=== PATIENT | male | born 1935 | race Caucasian/White ===

== ENCOUNTER 2021-01-25 12:41 | Inpatient (IN) ==
[2021-01-25] MEDS ORDERED: SODIUM CHLORIDE 0.9% 1,000 ML IV STA (15:41)
[2021-01-25] MEDS ORDERED: ONDANSETRON 4 MG/2 ML VIAL IV STA (15:41)
[2021-01-25 16:24] LABS: Basophils % 0.2 % (0.0-0.8); Eosinophils # 0.1 10*3/uL (0.0-0.87); Eosinophils % 0.8 % (0.00-10.9); Hematocrit 41.8 VOL% (42.0-52.0); Hemoglobin 13.1 GM/DL (14.0-18.0); Immature Granulocytes % 0.3 %; Immature Granulocytes Absolute 0.02 #; Lymphocytes # 0.7 10*3/uL (1.4-4.0); Lymphocytes % 11.5 % (21.2-54.2); Mean Corpuscular HGB Conc 31.3 GM/DL (32-36); Mean Corpuscular Volume 96.5 FL (87-102); Mean Platelet Volume 10.6 FL (9.6-12.0); Monocytes % 8.4 % (1.7-12.7); Neutrophils % 78.8 % (38.7-73.9); Platelet Count 110 T/CUMM (130-400); Red Blood Count 4.33 MC/CUMM (3.8-5.5); Red Cell Distribution Width 14.3 % (9.3-17.3); White Blood Count 6.3 T/CUMM (4-12)
[2021-01-25 16:39] LABS: Albumin 3.1 G/DL (3.4-5.0); Bilirubin,Total 1.8 MG/DL (0.2-1.0); Calcium 8.9 MG/DL (8.5-10.1); Osmolality,Calculated 286.7 MOS/KG (273-304); Potassium 4.8 MMOL/L (3.5-5.1); Total Protein 6.8 G/DL (6.4-8.2)
[2021-01-25 16:44] LABS: INR 1.7; PT Patient Result 18.7 SECS (10.5-12.0); Partial Thromboplastin Time 32.7 SECS (23.9-33.8)
[2021-01-25 16:49] LABS: Thyroid Stimulating Hormone 5.03 uIU/ml (0.358-3.74)
[2021-01-25 18:27] LABS: Bilirubin,Urine Negative (Negative); Blood, Urine Negative (Negative); Glucose,Urine (UA) Negative (Negative); Ketones,Urine Negative (Negative); Nitrite,Urine Negative (Negative); Protein,Urine 30 MG/DL; RBC,Urine 1 /HPF (0-4); Squamous Epithelial Cell,Urine Occasional /HPF (0-10); Urine Appearance CLEAR (Clear); Urine Color Yellow (Yellow); Urine Specific Gravity 1.028 (1.001-1.035); Urine Urobilinogen < 2.0 EU/DL (0.2-1.0)
[2021-01-25] MEDS ORDERED: DEXTROSE 50% 25 GM/50 ML VIAL IV PRN ×2 (19:26)
[2021-01-25] MEDS ORDERED: ONDANSETRON 4 MG/2 ML VIAL IV PRN (19:26)
[2021-01-25] MEDS ORDERED: GLUCAGON 1 MG VIAL IM PRN ×2 (19:26)
[2021-01-25] MEDS ORDERED: WARFARIN 2.5 MG TABLET PO ONE (19:51)
[2021-01-25] MEDS: INSULIN REGULAR 100 UNIT/ML SUBCUT SCH (23:22)
[2021-01-26 05:23] LABS: Basophils % 0.3 % (0.0-0.8); Eosinophils # 0.2 10*3/uL (0.0-0.87); Eosinophils % 2.6 % (0.00-10.9); Hematocrit 39.4 VOL% (42.0-52.0); Hemoglobin 12.5 GM/DL (14.0-18.0); Immature Granulocytes % 0.3 %; Immature Granulocytes Absolute 0.02 #; Lymphocytes # 0.9 10*3/uL (1.4-4.0); Lymphocytes % 14.5 % (21.2-54.2); Mean Corpuscular HGB Conc 31.7 GM/DL (32-36); Mean Corpuscular Volume 96.8 FL (87-102); Monocytes % 11.8 % (1.7-12.7); Neutrophils % 70.5 % (38.7-73.9); Platelet Count 103 T/CUMM (130-400); Red Blood Count 4.07 MC/CUMM (3.8-5.5); Red Cell Distribution Width 14.4 % (9.3-17.3); White Blood Count 6.1 T/CUMM (4-12)
[2021-01-26 05:24] LABS: INR 1.9; PT Patient Result 20.2 SECS (10.5-12.0)
[2021-01-26 05:56] LABS: Albumin 2.6 G/DL (3.4-5.0); Bilirubin,Total 1.3 MG/DL (0.2-1.0); Calcium 8.9 MG/DL (8.5-10.1); Osmolality,Calculated 285.5 MOS/KG (273-304); Potassium 4.6 MMOL/L (3.5-5.1); Total Protein 6.2 G/DL (6.4-8.2)
[2021-01-26 06:17] LABS: Microcytosis Slight; Ovalocytes Slight; Platelet Estimate Decreased
[2021-01-26 08:14] LABS: Free T4 (Free Thyroxine) 0.75 NG/DL (0.76-1.46)
[2021-01-26] MEDS: INSULIN REGULAR 100 UNIT/ML SUBCUT SCH ×4 (08:18→21:18)
[2021-01-26] MEDS ORDERED: SIMVASTATIN 10 MG TABLET PO SCH (09:00)
[2021-01-26] MEDS: ASPIRIN CHEW 81 MG TABLET PO SCH (09:35)
[2021-01-26] MEDS: TAMSULOSIN 0.4 MG CAPSULE PO SCH (09:36)
[2021-01-26] MEDS: PANTOPRAZOLE 40 MG TABLET PO SCH (09:36)
[2021-01-26] MEDS: AMIODARONE 200 MG TABLET PO SCH (09:36)
[2021-01-26] MEDS: FLUTICASONE 50 MCG NASAL SPRAY 16 GM BOTTLE BOTH NARES SCH (09:37)
[2021-01-26] MEDS: SODIUM CHLORIDE 0.9% 1,000 ML IV SCH (12:18)
[2021-01-26] MEDS: DIGOXIN 0.125 MG TABLET PO SCH (12:22)
[2021-01-26] MEDS ORDERED: INSULIN NPH/REGULAR 70/30 100 UNIT/ML SUBCUT SCH (16:30)
[2021-01-26] MEDS: WARFARIN 2 MG TABLET PO SCH (17:18)
[2021-01-26] MEDS: INSULIN NPH/REGULAR 70/30 100 UNIT/ML SUBCUT SCH (17:19)
[2021-01-26] MEDS: SERTRALINE 25 MG TABLET PO SCH (21:18)
[2021-01-26] MEDS: carvediloL 12.5 MG TABLET PO SCH (21:18)
[2021-01-27] MEDS: SODIUM CHLORIDE 0.9% 1,000 ML IV SCH ×2 (00:23→13:43)
[2021-01-27] MEDS: LEVOTHYROXINE 75 MCG TABLET PO SCH ×2 (06:08→09:29)
[2021-01-27 06:22] LABS: INR 2.3; PT Patient Result 23.9 SECS (10.5-12.0)
[2021-01-27] MEDS ORDERED: LEVOTHYROXINE 50 MCG TABLET PO SCH (07:00)
[2021-01-27 08:08] LABS: Basophils % 0.4 % (0.0-0.8); Eosinophils # 0.2 10*3/uL (0.0-0.87); Eosinophils % 3.4 % (0.00-10.9); Hematocrit 38.3 VOL% (42.0-52.0); Hemoglobin 12.1 GM/DL (14.0-18.0); Immature Granulocytes % 0.2 %; Immature Granulocytes Absolute 0.01 #; Lymphocytes % 19.8 % (21.2-54.2); Mean Corpuscular HGB Conc 31.6 GM/DL (32-36); Mean Corpuscular Volume 98.2 FL (87-102); Mean Platelet Volume 11.3 FL (9.6-12.0); Monocytes % 11.3 % (1.7-12.7); Neutrophils % 64.9 % (38.7-73.9); Platelet Count 96 T/CUMM (130-400); Red Cell Distribution Width 14.8 % (9.3-17.3); White Blood Count 5.1 T/CUMM (4-12)
[2021-01-27 08:13] LABS: Calcium 8.6 MG/DL (8.5-10.1); Osmolality,Calculated 278.7 MOS/KG (273-304); Potassium 4.5 MMOL/L (3.5-5.1)
[2021-01-27 08:27] LABS: Platelet Estimate Decreased
[2021-01-27 08:28] LABS: Anisocytosis 1+; Macrocytosis 1+
[2021-01-27] MEDS: TAMSULOSIN 0.4 MG CAPSULE PO SCH (09:29)
[2021-01-27] MEDS: INSULIN NPH/REGULAR 70/30 100 UNIT/ML SUBCUT SCH ×2 (09:29→17:07)
[2021-01-27] MEDS: SERTRALINE 25 MG TABLET PO SCH (09:29)
[2021-01-27] MEDS: FLUTICASONE 50 MCG NASAL SPRAY 16 GM BOTTLE BOTH NARES SCH (09:29)
[2021-01-27] MEDS: INSULIN REGULAR 100 UNIT/ML SUBCUT SCH ×4 (09:29→20:59)
[2021-01-27] MEDS: PANTOPRAZOLE 40 MG TABLET PO SCH (09:29)
[2021-01-27] MEDS: ASPIRIN CHEW 81 MG TABLET PO SCH (09:29)
[2021-01-27] MEDS ORDERED: cefTRIAXone 1,000 MG in SODIUM CHLORIDE 0.9% 100 ML IV SCH (10:30)
[2021-01-27] MEDS: carvediloL 12.5 MG TABLET PO SCH (10:31)
[2021-01-27 10:54] LABS: Vitamin B12 457 PG/ML (211-911)
[2021-01-27] MEDS ORDERED: LACTULOSE 20 GM/30 ML UDCUP PO ONE ×2 (12:05→21:00)
[2021-01-27] MEDS: DIGOXIN 0.125 MG TABLET PO SCH (12:28)
[2021-01-27] MEDS: WARFARIN 3 MG TABLET PO SCH (17:07)
[2021-01-27] MEDS: carvediloL 3.125 MG TABLET PO SCH (20:59)
[2021-01-28] MEDS: LEVOTHYROXINE 75 MCG TABLET PO SCH (06:30)
[2021-01-28] MEDS: SODIUM CHLORIDE 0.9% 1,000 ML IV SCH (06:45)
[2021-01-28 06:51] LABS: Basophils % 0.2 % (0.0-0.8); Eosinophils # 0.1 10*3/uL (0.0-0.87); Eosinophils % 2.4 % (0.00-10.9); Hematocrit 40.7 VOL% (42.0-52.0); Hemoglobin 13.1 GM/DL (14.0-18.0); Immature Granulocytes % 0.3 %; Immature Granulocytes Absolute 0.02 #; Lymphocytes # 0.9 10*3/uL (1.4-4.0); Lymphocytes % 15.3 % (21.2-54.2); Mean Corpuscular HGB Conc 32.2 GM/DL (32-36); Mean Corpuscular Volume 95.8 FL (87-102); Mean Platelet Volume 10.6 FL (9.6-12.0); Neutrophils % 70.8 % (38.7-73.9); Platelet Count 88 T/CUMM (130-400); Red Blood Count 4.25 MC/CUMM (3.8-5.5); Red Cell Distribution Width 14.6 % (9.3-17.3); White Blood Count 5.8 T/CUMM (4-12)
[2021-01-28 06:58] LABS: INR 2.3
[2021-01-28 06:59] LABS: PT Patient Result 24.4 SECS (10.5-12.0)
[2021-01-28 07:15] LABS: Calcium 8.5 MG/DL (8.5-10.1); Osmolality,Calculated 280.5 MOS/KG (273-304); Potassium 4.8 MMOL/L (3.5-5.1)
[2021-01-28 07:28] LABS: Anisocytosis 1+; Platelet Estimate Decreased
[2021-01-28 07:29] LABS: Barbiturates Screen,Urine Negative (Negative); Benzodiazepines Screen,Urine Negative (Negative); Cannabinoid Screen,Urine Negative (Negative); Opiate Screen,Urine Negative (Negative); Phencyclidine Screen,Urine Negative (Negative)
[2021-01-28 07:29] LABS: Burr Cells 1+; Macrocytosis Slight
[2021-01-28] MEDS: INSULIN REGULAR 100 UNIT/ML SUBCUT SCH ×4 (08:47→21:15)
[2021-01-28] MEDS: carvediloL 3.125 MG TABLET PO SCH ×2 (08:57→21:14)
[2021-01-28] MEDS: TAMSULOSIN 0.4 MG CAPSULE PO SCH (08:57)
[2021-01-28] MEDS: ASPIRIN CHEW 81 MG TABLET PO SCH (08:57)
[2021-01-28] MEDS: lisinopriL 2.5 MG TABLET PO SCH (08:57)
[2021-01-28] MEDS: PANTOPRAZOLE 40 MG TABLET PO SCH (08:57)
[2021-01-28] MEDS: FLUTICASONE 50 MCG NASAL SPRAY 16 GM BOTTLE BOTH NARES SCH (08:57)
[2021-01-28] MEDS: AMIODARONE 200 MG TABLET PO SCH (08:57)
[2021-01-28] MEDS: INSULIN NPH/REGULAR 70/30 100 UNIT/ML SUBCUT SCH ×2 (08:57→17:33)
[2021-01-28] MEDS ORDERED: LACTULOSE 20 GM/30 ML UDCUP PO ONE (09:51)
[2021-01-28] MEDS ORDERED: LACTULOSE 20 GM/30 ML UDCUP PO PRN (09:51)
[2021-01-28] MEDS: AMOXICILLIN/CLAV 875 MG TABLET PO SCH ×2 (11:20→21:11)
[2021-01-28] MEDS: DONEPEZIL 5 MG TABLET PO SCH (11:20)
[2021-01-28] MEDS: DIGOXIN 0.125 MG TABLET PO SCH (12:40)
[2021-01-28] MEDS: WARFARIN 3 MG TABLET PO SCH (17:34)
[2021-01-29 05:26] LABS: Basophils % 0.5 % (0.0-0.8); Eosinophils # 0.2 10*3/uL (0.0-0.87); Eosinophils % 3.6 % (0.00-10.9); Hematocrit 40.8 VOL% (42.0-52.0); Hemoglobin 12.8 GM/DL (14.0-18.0); Immature Granulocytes % 0.2 %; Immature Granulocytes Absolute 0.01 #; Lymphocytes # 0.9 10*3/uL (1.4-4.0); Lymphocytes % 14.9 % (21.2-54.2); Mean Corpuscular HGB Conc 31.4 GM/DL (32-36); Mean Corpuscular Volume 98.1 FL (87-102); Mean Platelet Volume 10.7 FL (9.6-12.0); Monocytes % 11.8 % (1.7-12.7); Red Blood Count 4.16 MC/CUMM (3.8-5.5); Red Cell Distribution Width 14.8 % (9.3-17.3); White Blood Count 5.8 T/CUMM (4-12)
[2021-01-29 05:27] LABS: Platelet Count 98 T/CUMM (130-400)
[2021-01-29 05:39] LABS: INR 2.9
[2021-01-29 05:40] LABS: PT Patient Result 30.1 SECS (10.5-12.0)
[2021-01-29 05:51] LABS: Calcium 9.2 MG/DL (8.5-10.1); Osmolality,Calculated 278.4 MOS/KG (273-304); Potassium 4.7 MMOL/L (3.5-5.1)
[2021-01-29] MEDS: LEVOTHYROXINE 75 MCG TABLET PO SCH (06:08)
[2021-01-29] MEDS: SODIUM CHLORIDE 0.9% 1,000 ML IV SCH (08:38)
[2021-01-29] MEDS: INSULIN REGULAR 100 UNIT/ML SUBCUT SCH ×4 (08:38→22:22)
[2021-01-29] MEDS: INSULIN NPH/REGULAR 70/30 100 UNIT/ML SUBCUT SCH ×2 (08:45→17:10)
[2021-01-29] MEDS: TAMSULOSIN 0.4 MG CAPSULE PO SCH (08:46)
[2021-01-29] MEDS: DONEPEZIL 5 MG TABLET PO SCH (08:46)
[2021-01-29] MEDS: lisinopriL 2.5 MG TABLET PO SCH (08:46)
[2021-01-29] MEDS: ASPIRIN CHEW 81 MG TABLET PO SCH (08:46)
[2021-01-29] MEDS: FLUTICASONE 50 MCG NASAL SPRAY 16 GM BOTTLE BOTH NARES SCH (08:46)
[2021-01-29] MEDS: PANTOPRAZOLE 40 MG TABLET PO SCH (08:46)
[2021-01-29] MEDS: carvediloL 3.125 MG TABLET PO SCH ×2 (08:46→20:45)
[2021-01-29] MEDS: AMOXICILLIN/CLAV 875 MG TABLET PO SCH ×2 (09:00→22:23)
[2021-01-29] MEDS: DIGOXIN 0.125 MG TABLET PO SCH (14:26)
[2021-01-29] MEDS: WARFARIN 2 MG TABLET PO SCH ×2 (17:09→17:20)
[2021-01-30 06:37] LABS: Basophils % 0.2 % (0.0-0.8); Eosinophils # 0.2 10*3/uL (0.0-0.87); Eosinophils % 2.9 % (0.00-10.9); Hematocrit 38.9 VOL% (42.0-52.0); Hemoglobin 12.6 GM/DL (14.0-18.0); Immature Granulocytes % 0.3 %; Immature Granulocytes Absolute 0.02 #; Lymphocytes # 0.8 10*3/uL (1.4-4.0); Lymphocytes % 13.7 % (21.2-54.2); Mean Corpuscular HGB Conc 32.4 GM/DL (32-36); Mean Corpuscular Volume 95.6 FL (87-102); Mean Platelet Volume 11.2 FL (9.6-12.0); Monocytes % 11.3 % (1.7-12.7); Neutrophils % 71.6 % (38.7-73.9); Platelet Count 101 T/CUMM (130-400); Red Blood Count 4.07 MC/CUMM (3.8-5.5); Red Cell Distribution Width 14.9 % (9.3-17.3); White Blood Count 5.8 T/CUMM (4-12)
[2021-01-30 06:40] LABS: INR 2.9
[2021-01-30 06:41] LABS: PT Patient Result 30.4 SECS (10.5-12.0)
[2021-01-30 06:51] LABS: Calcium 8.9 MG/DL (8.5-10.1); Osmolality,Calculated 273.8 MOS/KG (273-304); Potassium 4.3 MMOL/L (3.5-5.1)
[2021-01-30 06:58] LABS: Hypochromasia 1+; Microcytosis 1+; Platelet Estimate Decreased
[2021-01-30] MEDS: TAMSULOSIN 0.4 MG CAPSULE PO SCH (08:23)
[2021-01-30] MEDS: carvediloL 3.125 MG TABLET PO SCH ×2 (08:23→21:10)
[2021-01-30] MEDS: DONEPEZIL 5 MG TABLET PO SCH (08:23)
[2021-01-30] MEDS: ASPIRIN CHEW 81 MG TABLET PO SCH (08:23)
[2021-01-30] MEDS: lisinopriL 2.5 MG TABLET PO SCH (08:23)
[2021-01-30] MEDS: LEVOTHYROXINE 75 MCG TABLET PO SCH (08:23)
[2021-01-30] MEDS: INSULIN NPH/REGULAR 70/30 100 UNIT/ML SUBCUT SCH ×3 (08:24→16:13)
[2021-01-30] MEDS: PANTOPRAZOLE 40 MG TABLET PO SCH (08:24)
[2021-01-30] MEDS: AMIODARONE 200 MG TABLET PO SCH (08:24)
[2021-01-30] MEDS: SODIUM CHLORIDE 0.9% 1,000 ML IV SCH (08:24)
[2021-01-30] MEDS: INSULIN REGULAR 100 UNIT/ML SUBCUT SCH ×5 (08:24→21:10)
[2021-01-30] MEDS: FLUTICASONE 50 MCG NASAL SPRAY 16 GM BOTTLE BOTH NARES SCH (08:25)
[2021-01-30] MEDS: ACETAMINOPHEN 325 MG TABLET PO PRN (08:30)
[2021-01-30] MEDS ORDERED: TUBERCULIN SKIN TEST 0.1 ML SYRINGE INTRADERM ONE (09:02)
[2021-01-30] MEDS: AMOXICILLIN/CLAV 875 MG TABLET PO SCH ×2 (09:14→21:10)
[2021-01-30] MEDS: DIGOXIN 0.125 MG TABLET PO SCH (14:09)
[2021-01-30] MEDS: WARFARIN 3 MG TABLET PO SCH (17:30)
[2021-01-31] MEDS: SODIUM CHLORIDE 0.9% 1,000 ML IV SCH (03:24)
[2021-01-31 05:35] LABS: Basophils % 0.4 % (0.0-0.8); Eosinophils # 0.2 10*3/uL (0.0-0.87); Eosinophils % 3.5 % (0.00-10.9); Hematocrit 39.2 VOL% (42.0-52.0); Hemoglobin 12.9 GM/DL (14.0-18.0); Immature Granulocytes % 0.2 %; Immature Granulocytes Absolute 0.01 #; Lymphocytes # 0.8 10*3/uL (1.4-4.0); Lymphocytes % 14.7 % (21.2-54.2); Mean Corpuscular HGB Conc 32.9 GM/DL (32-36); Mean Corpuscular Volume 94.9 FL (87-102); Mean Platelet Volume 10.6 FL (9.6-12.0); Monocytes % 10.8 % (1.7-12.7); Neutrophils % 70.4 % (38.7-73.9); Red Blood Count 4.13 MC/CUMM (3.8-5.5); Red Cell Distribution Width 14.9 % (9.3-17.3); White Blood Count 5.4 T/CUMM (4-12)
[2021-01-31 05:38] LABS: Platelet Count 85 T/CUMM (130-400)
[2021-01-31 05:43] LABS: INR 2.6
[2021-01-31 05:51] LABS: PT Patient Result 27.6 SECS (10.5-12.0)
[2021-01-31 05:53] LABS: Calcium 8.9 MG/DL (8.5-10.1); Osmolality,Calculated 279.7 MOS/KG (273-304); Potassium 4.2 MMOL/L (3.5-5.1)
[2021-01-31 05:54] LABS: Platelet Estimate Decreased
[2021-01-31] MEDS: LEVOTHYROXINE 75 MCG TABLET PO SCH (06:02)
[2021-01-31] MEDS: INSULIN REGULAR 100 UNIT/ML SUBCUT SCH ×4 (07:36→21:04)
[2021-01-31] MEDS: INSULIN NPH/REGULAR 70/30 100 UNIT/ML SUBCUT SCH ×2 (08:37→16:32)
[2021-01-31] MEDS: ASPIRIN CHEW 81 MG TABLET PO SCH (08:37)
[2021-01-31] MEDS: carvediloL 3.125 MG TABLET PO SCH ×2 (08:37→20:41)
[2021-01-31] MEDS: TAMSULOSIN 0.4 MG CAPSULE PO SCH (08:38)
[2021-01-31] MEDS: lisinopriL 2.5 MG TABLET PO SCH (08:38)
[2021-01-31] MEDS: DONEPEZIL 5 MG TABLET PO SCH (08:38)
[2021-01-31] MEDS: FLUTICASONE 50 MCG NASAL SPRAY 16 GM BOTTLE BOTH NARES SCH (08:38)
[2021-01-31] MEDS: SERTRALINE 25 MG TABLET PO SCH (08:38)
[2021-01-31] MEDS: PANTOPRAZOLE 40 MG TABLET PO SCH (08:39)
[2021-01-31] MEDS: AMOXICILLIN/CLAV 875 MG TABLET PO SCH ×3 (08:59→21:05)
[2021-01-31] MEDS: DIGOXIN 0.125 MG TABLET PO SCH (13:15)
[2021-01-31] MEDS: WARFARIN 3 MG TABLET PO SCH (17:15)
[2021-02-01] MEDS: SODIUM CHLORIDE 0.9% 1,000 ML IV SCH (04:58)
[2021-02-01] MEDS: ACETAMINOPHEN 325 MG TABLET PO PRN (04:59)
[2021-02-01] MEDS: LEVOTHYROXINE 75 MCG TABLET PO SCH (06:09)
[2021-02-01 06:13] LABS: Basophils % 0.8 % (0.0-0.8); Eosinophils # 0.2 10*3/uL (0.0-0.87); Eosinophils % 3.2 % (0.00-10.9); Hematocrit 38.8 VOL% (42.0-52.0); Hemoglobin 12.8 GM/DL (14.0-18.0); Immature Granulocytes % 0.4 %; Immature Granulocytes Absolute 0.02 #; Lymphocytes # 0.7 10*3/uL (1.4-4.0); Lymphocytes % 15.1 % (21.2-54.2); Mean Corpuscular Volume 95.1 FL (87-102); Mean Platelet Volume 10.5 FL (9.6-12.0); Monocytes % 13.2 % (1.7-12.7); Neutrophils % 67.3 % (38.7-73.9); Platelet Count 95 T/CUMM (130-400); Red Blood Count 4.08 MC/CUMM (3.8-5.5); Red Cell Distribution Width 14.9 % (9.3-17.3); White Blood Count 4.8 T/CUMM (4-12)
[2021-02-01 06:22] LABS: INR 2.6; PT Patient Result 27.2 SECS (10.5-12.0)
[2021-02-01 06:37] LABS: Platelet Estimate Decreased
[2021-02-01 06:49] LABS: Osmolality,Calculated 275.7 MOS/KG (273-304); Potassium 4.3 MMOL/L (3.5-5.1)
[2021-02-01] MEDS: INSULIN REGULAR 100 UNIT/ML SUBCUT SCH ×2 (07:33→12:23)
[2021-02-01] MEDS: TAMSULOSIN 0.4 MG CAPSULE PO SCH (08:25)
[2021-02-01] MEDS: ASPIRIN CHEW 81 MG TABLET PO SCH (08:25)
[2021-02-01] MEDS: carvediloL 3.125 MG TABLET PO SCH (08:25)
[2021-02-01] MEDS: AMIODARONE 200 MG TABLET PO SCH (08:25)
[2021-02-01] MEDS: SERTRALINE 25 MG TABLET PO SCH (08:25)
[2021-02-01] MEDS: DONEPEZIL 5 MG TABLET PO SCH (08:25)
[2021-02-01] MEDS: lisinopriL 2.5 MG TABLET PO SCH (08:25)
[2021-02-01] MEDS: PANTOPRAZOLE 40 MG TABLET PO SCH (08:26)
[2021-02-01] MEDS: FLUTICASONE 50 MCG NASAL SPRAY 16 GM BOTTLE BOTH NARES SCH (08:26)
[2021-02-01] MEDS: INSULIN NPH/REGULAR 70/30 100 UNIT/ML SUBCUT SCH (08:26)
[2021-02-01] MEDS: AMOXICILLIN/CLAV 875 MG TABLET PO SCH (09:05)
[2021-02-01 12:07] VITALS: BP 122/60
== END 2021-02-01 13:40 | DRG 884 ==
LOC: N.ED 12:41 → N.EDINP 12:41 → N.5E 20:16 → SUATTDRO 01-26 10:15
PROVIDERS: ADMIT Internal Medicine; ATTEND Emergency Medicine

== ENCOUNTER 2021-06-29 00:35 | Inpatient (IN) ==
[2021-06-29] MEDS ORDERED: LEVOFLOXACIN INJ 500 MG/100 ML PREMIX IV ONE (01:33)
[2021-06-29 02:05] LABS: Bilirubin,Urine Negative (Negative); Blood, Urine Negative (Negative); Glucose,Urine (UA) Negative (Negative); Hyaline Casts,Urine 1 /LPF (0-3); Ketones,Urine Negative (Negative); Nitrite,Urine Negative (Negative); Protein,Urine Negative; RBC,Urine 2 /HPF (0-4); Squamous Epithelial Cell,Urine Occasional /HPF (0-10); Urine Appearance CLEAR (Clear); Urine Color Yellow (Yellow); Urine Specific Gravity 1.012 (1.001-1.035); Urine Urobilinogen < 2.0 EU/DL (0.2-1.0)
[2021-06-29 02:09] LABS: Barbiturates Screen,Urine Negative (Negative); Benzodiazepines Screen,Urine Negative (Negative); Cannabinoid Screen,Urine Negative (Negative); Opiate Screen,Urine Negative (Negative); Phencyclidine Screen,Urine Negative (Negative)
[2021-06-29 02:22] LABS: Basophils % 0.2 % (0.0-0.8); Eosinophils # 0.1 10*3/uL (0.0-0.87); Eosinophils % 0.9 % (0.00-10.9); Hematocrit 34.6 VOL% (42.0-52.0); Immature Granulocytes % 0.4 %; Immature Granulocytes Absolute 0.02 #; Lymphocytes # 0.8 10*3/uL (1.4-4.0); Lymphocytes % 15.1 % (21.2-54.2); Mean Corpuscular HGB Conc 28.9 GM/DL (32-36); Mean Corpuscular Volume 81.8 FL (87-102); Monocytes % 10.4 % (1.7-12.7); Platelet Count 91 T/CUMM (130-400); Red Blood Count 4.23 MC/CUMM (3.8-5.5); Red Cell Distribution Width 20.1 % (9.3-17.3); White Blood Count 5.6 T/CUMM (4-12)
[2021-06-29 02:28] LABS: Alanine Aminotransferase 25 U/L (16-61); Albumin 2.8 G/DL (3.4-5.0); Alkaline Phosphatase 78 U/L (45-117); Aspartate Amino Transferase 34 U/L (0-37); Blood Urea Nitrogen 33 MG/DL (7-18); Calcium 9.5 MG/DL (8.5-10.1); Carbon Dioxide 34 MMOL/L (21-32); Estimated Glom Filtration Rate 45 ML/MIN; Glucose 141 MG/DL (74-106); Potassium 4.6 MMOL/L (3.5-5.1); Sodium 136 MMOL/L (136-145); Total Protein 6.9 G/DL (6.4-8.2)
[2021-06-29 03:12] LABS: Hypochromasia Slight; Microcytosis Slight; Platelet Estimate Decreased
[2021-06-29] MEDS ORDERED: FUROSEMIDE 40 MG/4 ML VIAL IV STA (03:16)
[2021-06-29] MEDS ORDERED: MAGNESIUM SULF RIDER 4 GM/100 ML PREMIX IV PRN (03:30)
[2021-06-29] MEDS ORDERED: MAGNESIUM SULF RIDER 2 GM/50 ML PREMIX IV PRN (03:30)
[2021-06-29] MEDS ORDERED: DEXTROSE 50% 25 GM/50 ML VIAL IV PRN ×2 (03:30)
[2021-06-29] MEDS ORDERED: GLUCAGON 1 MG VIAL IM PRN ×2 (03:30)
[2021-06-29] MEDS ORDERED: ACETAMINOPHEN 325 MG TABLET PO PRN (03:30)
[2021-06-29] MEDS ORDERED: ONDANSETRON 4 MG/2 ML VIAL IV PRN (03:30)
[2021-06-29] MEDS ORDERED: ENOXAPARIN 40 MG/0.4 ML SYRINGE SUBCUT SCH (05:00)
[2021-06-29] MEDS: cefTRIAXone 1,000 MG in SODIUM CHLORIDE 0.9% 100 ML IV SCH (05:32)
[2021-06-29] MEDS: DOXYCYCLINE HYCLATE INJ 100 MG in SODIUM CHLORIDE 0.9% 100 ML IV SCH ×3 (05:39→21:42)
[2021-06-29] MEDS: LEVOTHYROXINE 25 MCG TABLET PO SCH (06:34)
[2021-06-29] MEDS ORDERED: DIGOXIN 0.125 MG TABLET PO SCH (08:00)
[2021-06-29] MEDS ORDERED: ASPIRIN EC 81 MG TABLET PO SCH (08:00)
[2021-06-29] MEDS ORDERED: FUROSEMIDE 40 MG/4 ML VIAL IV SCH (08:00)
[2021-06-29] MEDS: INSULIN REGULAR 100 UNIT/ML SUBCUT SCH ×4 (10:08→21:35)
[2021-06-29] MEDS: POTASSIUM CHLORIDE 20 MEQ TABLET PO SCH (10:08)
[2021-06-29] MEDS: AMIODARONE 200 MG TABLET PO SCH (10:08)
[2021-06-29] MEDS: TAMSULOSIN 0.4 MG CAPSULE PO SCH (10:08)
[2021-06-29] MEDS: SERTRALINE 50 MG TABLET PO SCH (10:08)
[2021-06-29] MEDS: SPIRONOLACTONE 25 MG TABLET PO SCH (10:09)
[2021-06-29] MEDS: PANTOPRAZOLE 40 MG TABLET PO SCH (10:09)
[2021-06-29] MEDS: FLUTICASONE 50 MCG NASAL SPRAY 16 GM BOTTLE BOTH NARES SCH (10:09)
[2021-06-29] MEDS: MAGNESIUM OXIDE 420 MG PO SCH ×2 (10:09→17:25)
[2021-06-29] MEDS: carvediloL 6.25 MG TABLET PO SCH ×2 (10:09→21:35)
[2021-06-29 10:31] LABS: PT Patient Result 169.9 SECS (10.5-12.0)
[2021-06-29 10:33] LABS: INR 18.9
[2021-06-29] MEDS ORDERED: PHYTONADIONE 5 MG/5 ML ORAL.SYR PO STA (11:15)
[2021-06-29] MEDS: ROSUVASTATIN 10 MG TABLET PO SCH (18:25)
[2021-06-29 18:37] LABS: PT Patient Result 67.7 SECS (10.5-12.0); Partial Thromboplastin Time 63.6 SECS (23.8-32.1)
[2021-06-30] MEDS: LEVOTHYROXINE 25 MCG TABLET PO SCH (06:05)
[2021-06-30] MEDS: cefTRIAXone 1,000 MG in SODIUM CHLORIDE 0.9% 100 ML IV SCH (06:05)
[2021-06-30 06:21] LABS: INR 2.5
[2021-06-30 06:22] LABS: PT Patient Result 25.7 SECS (10.5-12.0); Partial Thromboplastin Time 42.4 SECS (23.8-32.1)
[2021-06-30 06:34] LABS: Albumin 2.5 G/DL (3.4-5.0); Calcium 9.1 MG/DL (8.5-10.1); Osmolality,Calculated 279.7 MOS/KG (273-304)
[2021-06-30 06:42] LABS: Basophils % 0.2 % (0.0-0.8); Eosinophils # 0.1 10*3/uL (0.0-0.87); Eosinophils % 2.9 % (0.00-10.9); Hematocrit 31.7 VOL% (42.0-52.0); Hemoglobin 9.2 GM/DL (14.0-18.0); Immature Granulocytes % 0.5 %; Immature Granulocytes Absolute 0.02 #; Lymphocytes # 0.5 10*3/uL (1.4-4.0); Mean Platelet Volume 11.1 FL (9.6-12.0); Monocytes % 9.2 % (1.7-12.7); Neutrophils % 74.2 % (38.7-73.9); Platelet Count 82 T/CUMM (130-400); Red Blood Count 3.82 MC/CUMM (3.8-5.5); Red Cell Distribution Width 19.9 % (9.3-17.3); White Blood Count 4.2 T/CUMM (4-12)
[2021-06-30 07:08] LABS: Hypochromasia 2+; Microcytosis 1+
[2021-06-30 07:09] LABS: Ovalocytes Slight; Platelet Estimate Decreased; Polychromasia Slight
[2021-06-30] MEDS: INSULIN REGULAR 100 UNIT/ML SUBCUT SCH ×4 (09:48→20:38)
[2021-06-30] MEDS: PANTOPRAZOLE 40 MG TABLET PO SCH (09:48)
[2021-06-30] MEDS: carvediloL 6.25 MG TABLET PO SCH ×3 (09:49→20:37)
[2021-06-30] MEDS: SERTRALINE 50 MG TABLET PO SCH (09:49)
[2021-06-30] MEDS: TAMSULOSIN 0.4 MG CAPSULE PO SCH (09:49)
[2021-06-30] MEDS: MAGNESIUM OXIDE 420 MG PO SCH ×2 (09:49→16:16)
[2021-06-30] MEDS: SPIRONOLACTONE 25 MG TABLET PO SCH (09:49)
[2021-06-30] MEDS: POTASSIUM CHLORIDE 20 MEQ TABLET PO SCH (09:49)
[2021-06-30] MEDS: FLUTICASONE 50 MCG NASAL SPRAY 16 GM BOTTLE BOTH NARES SCH (09:50)
[2021-06-30] MEDS: DOXYCYCLINE HYCLATE INJ 100 MG in SODIUM CHLORIDE 0.9% 100 ML IV SCH ×2 (10:00→22:33)
[2021-06-30] MEDS: ROSUVASTATIN 10 MG TABLET PO SCH (17:21)
[2021-06-30] MEDS: ZALEPLON 5 MG CAPSULE PO PRN (20:37)
[2021-07-01] MEDS ORDERED: OLANZapine 10 MG VIAL IM ONE ×2 (00:35→13:13)
[2021-07-01] MEDS: cefTRIAXone 1,000 MG in SODIUM CHLORIDE 0.9% 100 ML IV SCH (04:55)
[2021-07-01] MEDS: LEVOTHYROXINE 25 MCG TABLET PO SCH (05:57)
[2021-07-01 06:42] LABS: INR 1.6; PT Patient Result 17.2 SECS (10.5-12.0); Partial Thromboplastin Time 35.2 SECS (23.8-32.1)
[2021-07-01] MEDS: DOXYCYCLINE HYCLATE INJ 100 MG in SODIUM CHLORIDE 0.9% 100 ML IV SCH ×2 (09:38→22:08)
[2021-07-01] MEDS: carvediloL 6.25 MG TABLET PO SCH ×2 (09:40→20:37)
[2021-07-01] MEDS: FUROSEMIDE 20 MG TABLET PO SCH (09:40)
[2021-07-01] MEDS: ASPIRIN EC 81 MG TABLET PO SCH (09:41)
[2021-07-01] MEDS: TAMSULOSIN 0.4 MG CAPSULE PO SCH (09:41)
[2021-07-01] MEDS: OLANZapine 5 MG TABLET PO SCH (09:41)
[2021-07-01] MEDS: SERTRALINE 50 MG TABLET PO SCH (09:41)
[2021-07-01] MEDS: AMIODARONE 200 MG TABLET PO SCH (09:41)
[2021-07-01] MEDS: PANTOPRAZOLE 40 MG TABLET PO SCH (09:41)
[2021-07-01] MEDS: POTASSIUM CHLORIDE 20 MEQ TABLET PO SCH (09:44)
[2021-07-01] MEDS: SPIRONOLACTONE 25 MG TABLET PO SCH (09:44)
[2021-07-01] MEDS: INSULIN REGULAR 100 UNIT/ML SUBCUT SCH ×4 (09:45→20:37)
[2021-07-01] MEDS: MAGNESIUM OXIDE 420 MG PO SCH ×2 (09:45→17:31)
[2021-07-01] MEDS: FLUTICASONE 50 MCG NASAL SPRAY 16 GM BOTTLE BOTH NARES SCH (11:01)
[2021-07-01] MEDS: ROSUVASTATIN 10 MG TABLET PO SCH (17:32)
[2021-07-01] MEDS: ZALEPLON 5 MG CAPSULE PO PRN (20:37)
[2021-07-02 05:40] LABS: INR 2.3; Partial Thromboplastin Time 40.4 SECS (23.8-32.1)
[2021-07-02 05:41] LABS: PT Patient Result 24.3 SECS (10.5-12.0)
[2021-07-02 05:52] LABS: Calcium 9.1 MG/DL (8.5-10.1); Osmolality,Calculated 284.4 MOS/KG (273-304); Potassium 4.8 MMOL/L (3.5-5.1)
[2021-07-02] MEDS: LEVOTHYROXINE 25 MCG TABLET PO SCH (05:58)
[2021-07-02] MEDS: cefTRIAXone 1,000 MG in SODIUM CHLORIDE 0.9% 100 ML IV SCH (05:58)
[2021-07-02 06:01] LABS: Basophils % 0.2 % (0.0-0.8); Eosinophils % 0.6 % (0.00-10.9); Hematocrit 34.3 VOL% (42.0-52.0); Hemoglobin 10.2 GM/DL (14.0-18.0); Lymphocytes # 0.8 10*3/uL (1.4-4.0); Lymphocytes % 15.8 % (21.2-54.2); Mean Corpuscular HGB Conc 29.7 GM/DL (32-36); Mean Corpuscular Volume 83.1 FL (87-102); Mean Platelet Volume 11.4 FL (9.6-12.0); Monocytes % 9.8 % (1.7-12.7); Neutrophils % 73.2 % (38.7-73.9); Platelet Count 69 T/CUMM (130-400); Red Blood Count 4.13 MC/CUMM (3.8-5.5); Red Cell Distribution Width 20.5 % (9.3-17.3); White Blood Count 4.9 T/CUMM (4-12)
[2021-07-02 06:19] LABS: Hypochromasia Slight; Lymphocytes 11 % (20-55); Microcytosis Slight; Platelet Estimate Decreased; Segmented Neutrophils 86 % (50-85)
[2021-07-02] MEDS: POTASSIUM CHLORIDE 20 MEQ TABLET PO SCH (09:30)
[2021-07-02] MEDS: TAMSULOSIN 0.4 MG CAPSULE PO SCH (09:30)
[2021-07-02] MEDS: SERTRALINE 50 MG TABLET PO SCH (09:31)
[2021-07-02] MEDS: ASPIRIN EC 81 MG TABLET PO SCH (09:32)
[2021-07-02] MEDS: SPIRONOLACTONE 25 MG TABLET PO SCH (09:32)
[2021-07-02] MEDS: OLANZapine 5 MG TABLET PO SCH (09:32)
[2021-07-02] MEDS: PANTOPRAZOLE 40 MG TABLET PO SCH (09:32)
[2021-07-02] MEDS: FUROSEMIDE 20 MG TABLET PO SCH (09:32)
[2021-07-02] MEDS: carvediloL 6.25 MG TABLET PO SCH ×2 (09:32→21:41)
[2021-07-02] MEDS: MAGNESIUM OXIDE 420 MG PO SCH ×2 (10:04→16:49)
[2021-07-02] MEDS: INSULIN REGULAR 100 UNIT/ML SUBCUT SCH ×4 (10:05→21:00)
[2021-07-02] MEDS: DOXYCYCLINE HYCLATE INJ 100 MG in SODIUM CHLORIDE 0.9% 100 ML IV SCH ×2 (10:27→21:41)
[2021-07-02] MEDS: FLUTICASONE 50 MCG NASAL SPRAY 16 GM BOTTLE BOTH NARES SCH (12:38)
[2021-07-02] MEDS: POLYETHYLENE GLYCOL POWDER 17 GM PACK PO SCH (13:34)
[2021-07-02] MEDS: ROSUVASTATIN 10 MG TABLET PO SCH (17:48)
[2021-07-02] MEDS: ZALEPLON 5 MG CAPSULE PO PRN (21:40)
[2021-07-03] MEDS: cefTRIAXone 1,000 MG in SODIUM CHLORIDE 0.9% 100 ML IV SCH (05:37)
[2021-07-03] MEDS: LEVOTHYROXINE 25 MCG TABLET PO SCH (05:37)
[2021-07-03 06:07] LABS: INR 2.8; PT Patient Result 28.7 SECS (10.5-12.0); Partial Thromboplastin Time 41.5 SECS (23.8-32.1)
[2021-07-03 06:11] LABS: Calcium 9.2 MG/DL (8.5-10.1); Osmolality,Calculated 282.7 MOS/KG (273-304); Potassium 4.4 MMOL/L (3.5-5.1)
[2021-07-03 07:17] LABS: Basophils % 0.2 % (0.0-0.8); Eosinophils # 0.1 10*3/uL (0.0-0.87); Eosinophils % 2.5 % (0.00-10.9); Hematocrit 37.7 VOL% (42.0-52.0); Immature Granulocytes % 0.5 %; Immature Granulocytes Absolute 0.02 #; Lymphocytes # 0.8 10*3/uL (1.4-4.0); Lymphocytes % 18.2 % (21.2-54.2); Mean Corpuscular HGB Conc 28.4 GM/DL (32-36); Mean Corpuscular Volume 84.5 FL (87-102); Monocytes % 7.5 % (1.7-12.7); Neutrophils % 71.1 % (38.7-73.9); Platelet Count 74 T/CUMM (130-400); Red Blood Count 4.46 MC/CUMM (3.8-5.5); Red Cell Distribution Width 20.9 % (9.3-17.3); White Blood Count 4.4 T/CUMM (4-12)
[2021-07-03 07:18] LABS: Hemoglobin 10.7 GM/DL (14.0-18.0)
[2021-07-03 07:27] LABS: Hypochromasia Slight; Microcytosis Slight; Platelet Estimate Decreased
[2021-07-03] MEDS: INSULIN REGULAR 100 UNIT/ML SUBCUT SCH (08:39)
[2021-07-03] MEDS: MAGNESIUM OXIDE 420 MG PO SCH (09:09)
[2021-07-03 09:15] LABS: % Iron Saturation 7.7 % (18-50)
[2021-07-03] MEDS: POTASSIUM CHLORIDE 20 MEQ TABLET PO SCH (09:25)
[2021-07-03] MEDS: SERTRALINE 50 MG TABLET PO SCH (09:25)
[2021-07-03] MEDS: FUROSEMIDE 20 MG TABLET PO SCH (09:26)
[2021-07-03] MEDS: AMIODARONE 200 MG TABLET PO SCH (09:26)
[2021-07-03] MEDS: TAMSULOSIN 0.4 MG CAPSULE PO SCH (09:26)
[2021-07-03] MEDS: ASPIRIN EC 81 MG TABLET PO SCH (09:27)
[2021-07-03] MEDS: SPIRONOLACTONE 25 MG TABLET PO SCH (09:28)
[2021-07-03] MEDS: carvediloL 6.25 MG TABLET PO SCH (09:28)
[2021-07-03] MEDS: PANTOPRAZOLE 40 MG TABLET PO SCH (09:28)
[2021-07-03] MEDS: OLANZapine 5 MG TABLET PO SCH (09:28)
[2021-07-03] MEDS: FLUTICASONE 50 MCG NASAL SPRAY 16 GM BOTTLE BOTH NARES SCH (10:07)
[2021-07-03] MEDS: POLYETHYLENE GLYCOL POWDER 17 GM PACK PO SCH (10:08)
[2021-07-03] MEDS: DOXYCYCLINE HYCLATE INJ 100 MG in SODIUM CHLORIDE 0.9% 100 ML IV SCH (10:08)
[2021-07-03 11:18] VITALS: BP 83/59
== END 2021-07-03 12:10 | DRG 193 ==
LOC: EDUNIT# → N.ED 00:35 → N.EDINP 03:30 → SUATTDRO 03:30 → N.TELEN 05:08
PROVIDERS: ADMIT Internal Medicine; ATTEND Internal Medicine

== ENCOUNTER 2021-07-07 19:48 | Observation (INO) ==
[2021-07-07 21:37] LABS: Basophils % 0.2 % (0.0-0.8); Eosinophils # 0.1 10*3/uL (0.0-0.87); Eosinophils % 1.3 % (0.00-10.9); Hemoglobin 10.4 GM/DL (14.0-18.0); Immature Granulocytes % 0.4 %; Immature Granulocytes Absolute 0.02 #; Lymphocytes # 0.8 10*3/uL (1.4-4.0); Lymphocytes % 14.7 % (21.2-54.2); Mean Corpuscular HGB Conc 28.9 GM/DL (32-36); Mean Corpuscular Volume 84.5 FL (87-102); Neutrophils % 75.4 % (38.7-73.9); Platelet Count 89 T/CUMM (130-400); Red Blood Count 4.26 MC/CUMM (3.8-5.5); White Blood Count 5.3 T/CUMM (4-12)
[2021-07-07 21:39] LABS: Albumin 2.6 G/DL (3.4-5.0); Bilirubin,Total 1.6 MG/DL (0.20-1.00); Calcium 9.6 MG/DL (8.5-10.1); Osmolality,Calculated 288.5 MOS/KG (273-304); Potassium 5.4 MMOL/L (3.5-5.1); Total Protein 6.7 G/DL (6.4-8.2)
[2021-07-07 21:45] LABS: Acanthocytes 1+; Anisocytosis 2+; Elliptocytes Few; Macrocytosis 1+; Microcytosis 2+; Platelet Estimate Decreased; Poikilocytosis 1+; Polychromasia Few; Target Cells Few
[2021-07-07 21:46] LABS: Hypochromasia 1+
[2021-07-07] MEDS ORDERED: SODIUM ZIRCONIUM CYCLOSILICATE 10 GM PACK PO STA (23:57)
[2021-07-08] MEDS ORDERED: SODIUM CHLORIDE 0.9% 500 ML IV STA ×2 (00:03→00:04)
[2021-07-08] MEDS ORDERED: ONDANSETRON 4 MG/2 ML VIAL IV PRN (01:21)
[2021-07-08] MEDS ORDERED: GLUCAGON 1 MG VIAL IM PRN (01:42)
[2021-07-08] MEDS ORDERED: DEXTROSE 50% 25 GM/50 ML VIAL IV PRN (01:42)
[2021-07-08] MEDS ORDERED: ACETAMINOPHEN 325 MG TABLET PO PRN (01:42)
[2021-07-08 06:56] LABS: Albumin 2.6 G/DL (3.4-5.0); Bilirubin,Total 1.8 MG/DL (0.20-1.00); Calcium 9.8 MG/DL (8.5-10.1); Potassium 5.3 MMOL/L (3.5-5.1); Total Protein 6.5 G/DL (6.4-8.2)
[2021-07-08 06:57] LABS: Basophils % 0.2 % (0.0-0.8); Eosinophils # 0.1 10*3/uL (0.0-0.87); Eosinophils % 1.5 % (0.00-10.9); Hematocrit 37.1 VOL% (42.0-52.0); Hemoglobin 10.7 GM/DL (14.0-18.0); Immature Granulocytes % 0.2 %; Immature Granulocytes Absolute 0.01 #; Lymphocytes # 0.7 10*3/uL (1.4-4.0); Lymphocytes % 15.3 % (21.2-54.2); Mean Corpuscular HGB Conc 28.8 GM/DL (32-36); Monocytes % 8.9 % (1.7-12.7); Neutrophils % 73.9 % (38.7-73.9); Red Blood Count 4.47 MC/CUMM (3.8-5.5); Red Cell Distribution Width 22.2 % (9.3-17.3); White Blood Count 4.7 T/CUMM (4-12)
[2021-07-08 06:58] LABS: Platelet Count 75 T/CUMM (130-400)
[2021-07-08 07:00] LABS: Platelet Estimate Decreased
[2021-07-08] MEDS ORDERED: SODIUM POLYSTYRENE SULFATE 15 GM/60 ML BOTTLE PO ONE (07:39)
[2021-07-08] MEDS: INSULIN LISPRO 100 UNIT/ML SUBCUT SCH ×3 (07:54→15:46)
[2021-07-08] MEDS: DOXYCYCLINE HYCLATE 100 MG CAPSULE PO SCH ×2 (09:48→20:21)
[2021-07-08] MEDS: PANTOPRAZOLE 40 MG TABLET PO SCH (09:48)
[2021-07-08 10:58] LABS: Hepatitis B Core IgM Quant 0.11 Index; Hepatitis B Surface Ag Quant < 0.10 Index; Hepatitis B Surface Ag Result Non-Reactive (NonReactive); Hepatitis C Virus Ab Quant 0.23 Index; Hepatitis C Virus Ab Result Non-Reactive (NonReactive)
[2021-07-08] MEDS ORDERED: ENOXAPARIN 40 MG/0.4 ML SYRINGE SUBCUT SCH (21:00)
[2021-07-09] MEDS: INSULIN LISPRO 100 UNIT/ML SUBCUT SCH ×4 (07:43→16:54)
[2021-07-09] MEDS: LEVOTHYROXINE 25 MCG TABLET PO SCH (07:43)
[2021-07-09] MEDS: DOXYCYCLINE HYCLATE 100 MG CAPSULE PO SCH ×2 (08:38→20:49)
[2021-07-09] MEDS: PANTOPRAZOLE 40 MG TABLET PO SCH (08:38)
[2021-07-09 11:22] LABS: Albumin 2.5 G/DL (3.4-5.0); Bilirubin,Total 2.1 MG/DL (0.20-1.00); Calcium 9.9 MG/DL (8.5-10.1); Osmolality,Calculated 290.5 MOS/KG (273-304); Potassium 5.2 MMOL/L (3.5-5.1); Total Protein 6.3 G/DL (6.4-8.2)
[2021-07-09] MEDS ORDERED: ZALEPLON 5 MG CAPSULE PO PRN (15:24)
[2021-07-09] MEDS: ENOXAPARIN 30 MG/0.3 ML SYRINGE SUBCUT SCH (16:45)
[2021-07-09] MEDS: cefTRIAXone 1,000 MG in SODIUM CHLORIDE 0.9% 100 ML IV SCH (16:47)
[2021-07-09] MEDS: MAGNESIUM OXIDE 400 MG TABLET PO SCH (16:49)
[2021-07-09] MEDS: ROSUVASTATIN 10 MG TABLET PO SCH (17:05)
[2021-07-10] MEDS: INSULIN LISPRO 100 UNIT/ML SUBCUT SCH ×5 (01:30→20:56)
[2021-07-10] MEDS: LEVOTHYROXINE 25 MCG TABLET PO SCH (08:05)
[2021-07-10 08:30] LABS: Calcium 9.8 MG/DL (8.5-10.1); Osmolality,Calculated 287.5 MOS/KG (273-304)
[2021-07-10 08:31] LABS: Basophils % 0.4 % (0.0-0.8); Eosinophils # 0.1 10*3/uL (0.0-0.87); Eosinophils % 1.3 % (0.00-10.9); Hematocrit 35.9 VOL% (42.0-52.0); Hemoglobin 10.8 GM/DL (14.0-18.0); Immature Granulocytes % 0.2 %; Immature Granulocytes Absolute 0.01 #; Lymphocytes # 0.9 10*3/uL (1.4-4.0); Lymphocytes % 19.1 % (21.2-54.2); Mean Corpuscular HGB Conc 30.1 GM/DL (32-36); Mean Corpuscular Volume 81.8 FL (87-102); Mean Platelet Volume 10.3 FL (9.6-12.0); Monocytes % 9.5 % (1.7-12.7); Neutrophils % 69.5 % (38.7-73.9); Platelet Count 88 T/CUMM (130-400); Red Blood Count 4.39 MC/CUMM (3.8-5.5); Red Cell Distribution Width 22.7 % (9.3-17.3); White Blood Count 4.6 T/CUMM (4-12)
[2021-07-10 08:49] LABS: Hypochromasia 1+; Microcytosis 1+; Ovalocytes Slight; Target Cells Slight
[2021-07-10 08:50] LABS: Platelet Estimate Decreased
[2021-07-10] MEDS: MAGNESIUM OXIDE 400 MG TABLET PO SCH ×2 (08:58→17:10)
[2021-07-10] MEDS: PANTOPRAZOLE 40 MG TABLET PO SCH (08:59)
[2021-07-10] MEDS: POLYETHYLENE GLYCOL POWDER 17 GM PACK PO SCH (08:59)
[2021-07-10] MEDS: OLANZapine 5 MG TABLET PO SCH (08:59)
[2021-07-10] MEDS: FLUTICASONE 50 MCG NASAL SPRAY 16 GM BOTTLE BOTH NARES SCH (08:59)
[2021-07-10] MEDS: DOXYCYCLINE HYCLATE 100 MG CAPSULE PO SCH ×2 (08:59→20:57)
[2021-07-10] MEDS: ENOXAPARIN 30 MG/0.3 ML SYRINGE SUBCUT SCH (15:20)
[2021-07-10] MEDS: cefTRIAXone 1,000 MG in SODIUM CHLORIDE 0.9% 100 ML IV SCH (15:22)
[2021-07-10] MEDS: ROSUVASTATIN 10 MG TABLET PO SCH (17:10)
[2021-07-11] MEDS: LEVOTHYROXINE 25 MCG TABLET PO SCH (06:42)
[2021-07-11] MEDS: INSULIN LISPRO 100 UNIT/ML SUBCUT SCH ×2 (08:12→11:16)
[2021-07-11] MEDS: MAGNESIUM OXIDE 400 MG TABLET PO SCH (09:03)
[2021-07-11] MEDS: DOXYCYCLINE HYCLATE 100 MG CAPSULE PO SCH (09:03)
[2021-07-11] MEDS: PANTOPRAZOLE 40 MG TABLET PO SCH (09:03)
[2021-07-11] MEDS: OLANZapine 5 MG TABLET PO SCH (09:03)
[2021-07-11] MEDS: FLUTICASONE 50 MCG NASAL SPRAY 16 GM BOTTLE BOTH NARES SCH (09:04)
[2021-07-11] MEDS: POLYETHYLENE GLYCOL POWDER 17 GM PACK PO SCH (09:04)
[2021-07-11 12:19] VITALS: BP 90/58
== END 2021-07-11 13:57 | disposition swing bed (61) ==
LOC: EDBD → EDUNIT# → N.EDINP 19:48 → N.ED 19:48 → SUATTDRO 07-08 01:21 → N.TELES 07-08 05:50
PROVIDERS: ADMIT Internal Medicine; ATTEND Internal Medicine